=== PATIENT | male | born 1975 | race Hispanic/Latino ===

== ENCOUNTER 2025-02-04 12:10 | Emergency (ER) | payer OTHER ==
[~2025-02-04] VITALS: Ht 165.1 cm; Wt 76.2 kg
[2025-02-04] MEDS: FAMOTIDINE 20MG VIAL IV STA (12:35)
[2025-02-04] MEDS: Solu-medROL 125MG VIAL IVP STA (12:35)
[2025-02-04] MEDS: 0.9%NACL 1000ML 1,000 ML IV STA (12:36)
[2025-02-04] MEDS: DiphenhydrAMINE HCL 50 MG/ML VIAL IV STA (12:36)
[2025-02-04 13:28] VITALS: BP 138/82; PULSE 84; RESP 16; TEMP 98.1; O2SAT 98
[2025-02-04] MEDS ORDERED: EPIN0.3P3 IM (14:08)
[2025-02-04] MEDS ORDERED: METH4TAB3 PO (14:08)
--- NOTE | 2025-02-04 14:09 | ERN ---
ED Note History of Present Illness Stated Complaint: AT WORK AND GOT STUNG BY BEES/ SWOLLEN Chief Complaint: Allergic Reaction Time Seen by MD: 12:15 Time Seen by Midlevel: 12:18 Dictation: 49-year-old male with no past medical history coming in with complaints of allergic reaction to bee sting. Patient has a rash throughout his bilateral upper extremities and chest, denies any shortness a breath or any swelling of the tongue and lips. Allergies: Coded Allergies: No Known Allergies (Unverified Allergy, Unknown, 02/04/25) Past Medical History Past Medical History: No Pertinent History Surgical History: None Review of System Dictation Constitutional: Negative for fever,chills, and weight loss Eyes: Negative for injury, pain,redness, and discharge ENT: Negative for injury,pain or swelling Cardiovascular: Negative for chest pain, palpitations, and edema Respiratory: Negative for shortness of breath, cough, and wheezing, Abdomen/GI: Negative for abdominal pain, nausea, vomiting, diarrhea, and constipation Back: Negative for injury and pain : Negative for injury, bleeding and discharge MS/Extremity: Negative for injury and deformity Skin:abdulaziz Neuro: Negative for headache, weakness, numbness, tingling, and seizure Psych: Negative for suicide ideation, homicidal ideation, and hallucinations Review of Systems: was completed Initial Vital Sign VS Vital Signs Date Time Temp Pulse Resp B/P (MAP) Pulse Ox O2 Delivery O2 Flow Rate FiO2 02/04/25 12:18 97.9 98 16 140/103 98 Room Air 0 02/04/25 12:29 21 Physical Exam Dictation General: awake, alert, NAD Head/Face: Normocephalic, atraumatic Eyes: PERRL, EOMI, vision at baseline ENT: oral cavity clear, TMs clear, no signs of infection, no oral angioedema Neck: Trachea midline, supple, no nuchal rigidity Cardiovascular: RRR, normal S1/S2, No MRGs, no JVD Respiratory: CTAB, no respiratory distress, No rales or wheezes Abdomen: Soft, non-tender, non-distended, normal bowel sounds, no guarding or rebound. Skin: Warm, dry, normal turgor, rash noted to bilateral upper extremities, blanchable, no hives MS/Extremity: Pulses equal, no cyanosis, neurovascular intact, FROM Neuro: COAx4, GCS 15, strength 5/5, CN 2-12 intact, normal cerebellar exam, normal gait, Psych: Normal behavior, mood, and affect normal ED Course ED Course Orders Procedure Category Date Status Time 0.9%Nacl 1000ml (Ns PHA 02/04/25 In Process 1000ml) 12:26 Famotidine 20mg Vial PHA 02/04/25 Complete (Pepcid 20mg Vial) 12:26 Methylprednisolone PHA 02/04/25 Complete Succ 125mg (Solu-Medr 12:26 Diphenhydramine Hcl PHA 02/04/25 Complete (Benadryl Inj) 12:26 Current Medications Medications (Trade) Dose Ordered Sig/Amalia Route PRN Reason Start Time Stop Time Status Last Admin Dose Admin Diphenhydramine HCl (BENAdryl INJ) 25 mg ONCE STAT IV 02/04/25 12:26 02/04/25 12:30 DC 02/04/25 12:36 Famotidine (Pepcid 20mg Vial) 20 mg ONCE STAT IV 02/04/25 12:26 02/04/25 12:30 DC 02/04/25 12:35 Methylprednisolone Sodium Succinate (Solu-medROL 125MG) 125 mg ONCE STAT IVP 02/04/25 12:26 02/04/25 12:30 DC 02/04/25 12:35 Sodium Chloride 1,000 ml @ 100 mls/hr Q10H STAT IV 02/04/25 12:26 02/04/25 22:25 02/04/25 12:36 Vital Signs Date Time Temp Pulse Resp B/P (MAP) Pulse Ox O2 Delivery O2 Flow Rate FiO2 02/04/25 13:28 98.1 84 16 138/82 98 Room Air* 0 02/04/25 12:29 98.1 98 16 142/90 98 Room Air* 0 21 02/04/25 12:18 97.9 98 16 140/103 98 Room Air 0 Medical Decision Making MDM MDM: 49-year-old male with no past medical history coming in with complaints of allergic reaction to bee sting. Patient has a rash throughout his bilateral upper extremities and chest, denies any shortness a breath or any swelling of the tongue and lips. After fluids, steroids and Benadryl patient feels much better. Rash has resolved. [facility] to take Benadryl as needed [id number]. Patient verbalized understanding, answered all questions. Differential diagnosis: Anaphylactic reaction, rash, hives Rationale: Tests considered and ordered secondary to shared decision making include: Previous outside records reviewed: Old ER visits. Risk of complication and/or morbidity or mortality of patient management: None Medications-Per medication reconciliation Need for hospitalization: Patient does not meet criteria for hospitalization. Need for emergency major/minor surgery: No There are no social concerns with this patient. Prescription drug management Prescriptions will include symptomatic care Patient's prior external medical records from other ER visits were reviewed by me as indicated. Prior testing and results from previous visits were reviewed. Prior tests were taken into account with medical decision making and resource utilization, independent historian/historians were used to obtain complete medical history. I independently interpreted the test that were performed, results were reviewed by me and considered findings on radiology if ordered. Medical management and examination interpretation discussions were had by me with other qualified healthcare professionals as indicated for the patient's care. DX & DISP Disposition: Discharge Departure Impression: Primary Impression: Bee sting allergy Additional Impression: Bee sting reaction Condition: Stable Scripts Epinephrine (Epipen 2-Miah) 0.3 Mg/0.3 Ml Auto.injct 1 SYR IM ONCE for 1 Day, #1 PACKET 0 Refills Prov: SHUN SOLO WASTE [employer]INATION 02/04/25 Methylprednisolone (Medrol) 4 Mg Tab.ds.pk 1 TAB PO AD for 6 Days, #21 TAB 0 Refills 6 on day 1 then reduce by one tablet daily until gone Prov: SHUN SOLO [employer] 02/04/25 Additional Instructions: Take Benadryl [id number] as needed for rash. Take the steroid for i nflammation, and use the EpiPen as needed. Follow up with PCP in 1-2 days, return if you have any Referrals: SELF,REFERRAL (PCP) Time of Disposition: 14:07 I have reviewed the case, and I agree with, Diagnosis and Plan SHUN SOLO NP Feb 04, 2025 14:09
== END 2025-02-04 14:21 | disposition home or self-care (01) ==
LOC: EDH 12:10
DX: T63.441A Toxic effect of venom of bees, accidental (unintentional), initial encounter (principal); Y92.89 Other specified places as the place of occurrence of the external cause
CPT/HCPCS: 99284; 96374; 96375; J2919; J1200; J3490; J7030